=== PATIENT | female | born 1955 | race Asian ===

== ENCOUNTER 2022-03-28 12:37 | Emergency (ER) ==
[~2022-03-28] VITALS: Ht 165.1 cm; Wt 108.9 kg
== END 2022-03-28 13:21 | disposition left against medical advice (07) ==
LOC: ED 12:37
DX: I10 Essential (primary) hypertension (principal); R41.82 Altered mental status, unspecified; Z53.29 Procedure and treatment not carried out because of patient's decision for other reasons
CPT/HCPCS: 99281

== ENCOUNTER 2022-05-26 14:34 | Emergency (ER) | payer OTHER ==
[~2022-05-26] VITALS: Ht 165.1 cm; Wt 74.8 kg
[2022-05-26 15:07] LABS: PLATELET COUNT 273 K/uL (152-353)
[2022-05-26 15:17] LABS: POTASSIUM 4.2 mmol/L (3.6-5.2)
[2022-05-26] MEDS ORDERED: IRON325 MG PO (17:47)
[2022-05-26] MEDS ORDERED: DQZATE100 MG PO (17:48)
[2022-05-26] MEDS ORDERED: HYDR25CA25 PO (17:49)
[2022-05-26] MEDS ORDERED: ONDA4TAB3 PO (17:49)
[2022-05-26] MEDS ORDERED: NICODERM C14 MG/241 TD (17:50)
[2022-05-26] MEDS ORDERED: MILK OF MA400 MG/5 M PO (17:51)
[2022-05-26] MEDS ORDERED: SIMV40TA57 PO (17:51)
[2022-05-26] MEDS ORDERED: AMLODIPINE BESYLATE PO (17:52)
[2022-05-26] MEDS ORDERED: DONE5TAB PO (17:52)
[2022-05-26] MEDS ORDERED: FURO20TA67 PO (17:53)
[2022-05-26] MEDS ORDERED: LISI10TA11 PO (17:54)
[2022-05-26] MEDS ORDERED: DULCOLAX5 MG PO (17:54)
[2022-05-26] MEDS ORDERED: TRAZ50TA36 PO (17:55)
[2022-05-26] MEDS ORDERED: BUSPIRONE HYDROC5 MG PO (18:08)
[2022-05-26] MEDS ORDERED: FAMO20TA4 PO (18:09)
[2022-05-26] MEDS ORDERED: QUET25TA2 PO (18:10)
== END 2022-05-26 16:02 | disposition still patient (30) ==
LOC: ED 14:34
PROVIDERS: Emergency Medicine
DX: G30.8 Other Alzheimer's disease (principal); F02.811 Dementia in other diseases classified elsewhere, unspecified severity, with agitation; R45.1 Restlessness and agitation; E86.0 Dehydration; I10 Essential (primary) hypertension; Z11.52 Encounter for screening for COVID-19; Z04.6 Encounter for general psychiatric examination, requested by authority
CPT/HCPCS: 80053; 81002; 85027; 87635; 93005; 99285; U0003